=== PATIENT | female | born 1925 | race Caucasian/White ===

== ENCOUNTER 2017-04-12 11:38 | Inpatient (IN) ==
[2017-04-12] MEDS ORDERED: IBUPROFEN 600 MG TABLET PO ONE (12:13)
[2017-04-12] MEDS ORDERED: LACTATED RINGERS 1,000 ML IV ONE (12:13)
[2017-04-12] MEDS ORDERED: ACETAMINOPHEN 325 MG TABLET PO ONE (12:13)
--- NOTE | 2017-04-12 12:13 | Cat Scan Report ---
CLINICAL INFORMATION: Confusion and weakness question stroke COMPARISON: 06/17/2016. TECHNIQUE: 2.5 mm helical slices were obtained in the skull base to vertex. Following reconstruction, axial reformatted images were reviewed at bone and parenchymal windows. The exam was performed using radiation dose optimization techniques including, but not limited to, automated exposure control, adjustment of the mA and/or kV according to patient size and use of iterative reconstruction technique. FINDINGS: The ventricles, sulci, fissures, and cisterns are symmetrically enlarged compatible with moderate atrophy: this is unchanged. No extra-axial fluid collections or masses. Mild chronic ischemic changes in the white matter also stable. No acute cerebral hemorrhage, mass effect, edema or other acute finding. Bone windows show no osseous abnormality. IMPRESSION: Moderate atrophy and chronic ischemic changes deep cerebral white matter - stable. No acute findings. Interpreted and Authenticated by: Dariel Galvan 04/12/17
[2017-04-12] MEDS ORDERED: LABETALOL 5 MG/ML ML IV ONE ×2 (12:31→12:39)
--- NOTE | 2017-04-12 12:33 | Emergency Department Note ---
Weakness HPI - General Chief complaint: Stroke Symptoms Stated complaint: confusion and headache Time Seen by Provider: 04/12/17 11:53 Source: patient Mode of arrival: ambulatory - History of Present Illness HPI Narrative: This 89-year-old female is brought in by private vehicle with a history of EMS being on seen in the. Patient refusing transport by EMS. The daughter was not advised to bring her in after an episode of confusion that started this morning about 9 AM up. Sometime between 9 AM and 10 AM another daughter was on the phone with her noticed that she was confused. There is no history of confusion prior to this, but then we do not have any history how she was this morning up. She lives by herself. There is no history of any nausea, vomiting, she does report a headache which is left-sided, there is no right-sided weakness, she has no focal deficits except that she is very confused. According to the daughter. To me she knows where she is she knows the month. She knows her name , she has a hard time following commands and she is inconsistent in following her commands and simple tasks like arm raising or specific commands. No recent fevers, no chills, no chest pain, no shortness of breath, she does have a pacemaker in place and she is chronically anticoagulated. - Related Data Home Medications Medication Instructions Recorded Confirmed aspirin 81 mg tablet,delayed 81 mg PO QDAY tab 11/30/14 01/17/17 release calcium carbonate 500 mg calcium 1,000 mg PO QDAY tab 11/30/14 01/17/17 (1,250 mg) tablet lysine 500 mg tablet 500 mg PO .3x/week tab 11/30/14 01/17/17 multivitamin capsule 1 cap PO QDAY cap 11/30/14 01/17/17 cartilage 40 mg-collagen II-boron tab PO 09/01/15 01/17/17 5 mg-hyaluronate sod 3.3 mg tablet vit C 50 mg-E 15 unit-zinc cit 4.5 2 tab PO QDAY 09/01/15 01/17/17 mg-lutein 2.5 mg-zeaxan chew tablet Previous Rx's Medication Instructions Recorded magnesium oxide-magnesium amino 1 cap PO QDAY #1 cap 07/28/15 acid chelate 300 mg capsule furosemide 40 mg tablet 80 mg PO QAM 90 Days #180 tab 06/21/16 potassium chloride ER 10 mEq 20 meq PO QAM 90 Days #180 cap 06/21/16 capsule,extended release hydrocodone 7.5 mg-acetaminophen 7.5 mg PO QDAY PRN #28 tab 11/22/16 325 mg tablet warfarin 5 mg tablet See Label Instructions PO QDAY 12/26/16 #100 tab ascorbic acid (vitamin C) 500 mg 500 mg PO BID #1 tab 01/28/17 tablet ferrous sulfate 325 mg (65 mg 325 mg PO BID #1 tab 01/28/17 iron) tablet pantoprazole 40 mg tablet,delayed 40 mg PO BID #180 tab 02/19/17 release Allergies Allergy/AdvReac Type Severity Reaction Status Date / Time No Known Drug Allergies Allergy Verified 04/12/17 11:43 Review of Systems All systems ED: reviewed and negative except as stated. Past Medical History - Past Medical History Source: nursing notes reviewed Medical history: Reports: hypertension, valvular heart disease (ortic valve) Surgical history ED: Reports: angioplasty/stent, heart valve replacement, pacemaker/AICD, other Family history: Reports: non-contributory - Social History smoking status: Never smoker Alcohol use: Reports: None Physical Exam Limitations: no limitations General appearance: alert Head: atraumatic, normocephalic, normal inspection Eye: Present: normal appearance, PERRL, EOMI, visual dubose intact. Absent: conjunctival injection, nystagmus, miosis, mydriasis ENT: normal exam, normal oropharynx, mucous membranes moist, TM's normal bilaterally Neck: Present: normal inspection, full ROM, trachea midline. Absent: tenderness Chest: Present: normal inspection, symmetric chest wall rise Respiratory: Present: normal lung sounds bilaterally. Absent: respiratory distress Cardiovascular: Present: regular rate, tachycardia, normal heart sounds Abdominal: Present: soft, normal bowel sounds. Absent: distention, tenderness, guarding, rebound Extremities: Present: normal inspection, full ROM, normal capillary refill. Absent: tenderness, pedal edema Back: Present: normal inspection. Absent: CVA tenderness (R), CVA tenderness (L ), muscle spasm, vertebral tenderness Neurological: Present: alert, oriented X3, CN II-XII intact, normal gait, other (Confusion as well as word finding ability. Speech is not slurred. She has no other focal deficits.). Absent: motor sensory deficit Skin: Present: warm, dry, intact Course Vital Signs Temperature 97.2 F 04/12/17 11:41 Pulse Rate 93 H 04/12/17 11:41 Respiratory Rate 16 04/12/17 11:41 Blood Pressure 184/105 04/12/17 11:41 Pulse Oximetry (%) 96 04/12/17 11:41 Temperature 97.2 F 04/12/17 11:41 Pulse Rate 89 04/12/17 14:34 Respiratory Rate 14 04/12/17 14:34 Blood Pressure 201/115 04/12/17 14:31 Pulse Oximetry (%) 100 04/12/17 14:34 Weakness - MDM Narrative Medical decision making narrative: Her blood pressure is improving, she had a negative CTA of her neck and had. Neurologic condition is improving, speech is no longer off, she is awake, alert , oriented 3. She states her headache is improving as well. Her labs look unremarkable. I did discuss this with Dr. Hartman we will admit at this point for further stroke workup. Final diagnosis is confusion associated with hypertension, question of hypertensive encephalopathy versus TIA - Lab Data Result diagrams: 04/12/17 12:36 04/12/17 12:36 Lab Results 04/12/17 04/12/17 04/12/17 Range/Units 12:36 12:36 12:36 WBC 9.5 (4.5-11.0) K/mcL RBC 5.27 H (4.00-5.20) M/mcL Hgb 14.2 (12.0-15.0) g/dL Hct 44.0 (36.0-48.0) % MCV 83.4 (80.0-100.0) fL MCH 27.0 (26.0-34.0) pg MCHC 32.4 (31.0-36.0) g/dL RDW 22.9 H (11.5-14.5) % Plt Count 305 (140-440) K/mcL MPV 9.1 (7.4-10.4) fL Gran % 48.4 (38.0-78.0) % Lymph % (Auto) 37.7 (15.5-49.0) % [place] % (Auto) 9.5 (1.0-12.0) % Eos % (Auto) 3.5 (0.0-7.0) % Baso % (Auto) 0.9 (0.0-2.0) % Gran # 4.6 (1.8-8.0) K/mcL Lymph # (Auto) 3.6 (1.5-4.8) K/mcL [place] # (Auto) 0.9 (0.1-0.9) K/mcL Eos # (Auto) 0.3 (0.0-0.7) K/mcL Baso # (Auto) 0.1 (0.0-0.3) K/mcL PT 24.4 H (11.9-14.5) sec INR 2.1 H (0.9-1.1) Sodium 141 (133-145) mmol/L Potassium 3.7 (3.3-5.1) mmol/L Chloride 100 (96-108) mmol/L Carbon Dioxide 27 (22-30) mmol/L Anion Gap 14.0 (8-16) BUN 16 (8-23) mg/dl Creatinine 0.9 (0.6-1.1) mg/dl GFR Calculation 57 Glucose 114 H (70-105) mg/dL Calcium 9.5 (8.6-10.4) mg/dl Total Bilirubin 0.2 (0.0-1.0) mg/dL AST 26 (0-37) U/l ALT 13 (0-40) U/l Alkaline Phosphatase 83 (39-117) U/L Total Protein 8.6 H (5.9-8.4) gm/dL Albumin 4.5 (3.2-5.2) gm/dL Globulin 4.1 H (2.2-3.7) gm/dL Albumin/Globulin Ratio 1.1 (1.0-2.3) Urine Color Urine Appearance Urine pH (5.0-9.0) Ur Specific [place] (1.000-1.035) Urine Protein (NEG) mg/dL Urine Glucose (UA) (NEG) mg/dL Urine Ketones (NEG) mg/dL Urine Occult Blood (<0.03) mg/dL Urine Nitrate (NEG) Urine Bilirubin (NEG) mg/dL Urine Urobilinogen (NEG) mg/dL Ur Leukocyte Esterase (NEG) /uL Urine RBC (0-1) /hpf Urine WBC (0-4) /hpf Ur Squamous Epith Cells (0-4) /hpf Urine Bacteria (0) /hpf Urine Mucus (0) /hpf Ur Culture Indicated? 04/12/17 Range/Units 12:44 WBC (4.5-11.0) K/mcL RBC (4.00-5.20) M/mcL Hgb (12.0-15.0) g/dL Hct (36.0-48.0) % MCV (80.0-100.0) fL MCH (26.0-34.0) pg MCHC (31.0-36.0) g/dL RDW (11.5-14.5) % Plt Count (140-440) K/mcL MPV (7.4-10.4) fL Gran % (38.0-78.0) % Lymph % (Auto) (15.5-49.0) % [place] % (Auto) (1.0-12.0) % Eos % (Auto) (0.0-7.0) % Baso % (Auto) (0.0-2.0) % Gran # (1.8-8.0) K/mcL Lymph # (Auto) (1.5-4.8) K/mcL [place] # (Auto) (0.1-0.9) K/mcL Eos # (Auto) (0.0-0.7) K/mcL Baso # (Auto) (0.0-0.3) K/mcL PT (11.9-14.5) sec INR (0.9-1.1) Sodium (133-145) mmol/L Potassium (3.3-5.1) mmol/L Chloride (96-108) mmol/L Carbon Dioxide (22-30) mmol/L Anion Gap (8-16) BUN (8-23) mg/dl Creatinine (0.6-1.1) mg/dl GFR Calculation Glucose (70-105) mg/dL Calcium (8.6-10.4) mg/dl Total Bilirubin (0.0-1.0) mg/dL AST (0-37) U/l ALT (0-40) U/l Alkaline Phosphatase (39-117) U/L Total Protein (5.9-8.4) gm/dL Albumin (3.2-5.2) gm/dL Globulin (2.2-3.7) gm/dL Albumin/Globulin Ratio (1.0-2.3) Urine Color Yellow Urine Appearance Cloudy Urine pH 7.0 (5.0-9.0) Ur Specific [place] 1.008 (1.000-1.035) Urine Protein Neg (NEG) mg/dL Urine Glucose (UA) Negative (NEG) mg/dL Urine Ketones Neg (NEG) mg/dL Urine Occult Blood Neg (<0.03) mg/dL Urine Nitrate Neg (NEG) Urine Bilirubin Neg (NEG) mg/dL Urine Urobilinogen Neg (NEG) mg/dL Ur Leukocyte Esterase 500 A (NEG) /uL Urine RBC 7 H (0-1) /hpf Urine WBC > 182 H (0-4) /hpf Ur Squamous Epith Cells 0 (0-4) /hpf Urine Bacteria 0 (0) /hpf Urine Mucus Few (0) /hpf Ur Culture Indicated? Yes Disposition Pt seen by [facility] [facility]/PA only: No Clinical Impression: TIA (transient ischemic attack) Disposition: Xfer As Inpt ([facility]) Condition: Fair Referrals: Zoltan Lou MD [Primary Care Provider] -
[2017-04-12 13:13] LABS: Basophils # (Auto) 0.1 K/mcL (0.0-0.3); Basophils % (Auto) 0.9 % (0.0-2.0); Eosinophils # (Auto) 0.3 K/mcL (0.0-0.7); Eosinophils % (Auto) 3.5 % (0.0-7.0); Granulocytes % (Auto) 48.4 % (38.0-78.0); Lymphocytes # (Auto) 3.6 K/mcL (1.5-4.8); Lymphocytes % (Auto) 37.7 % (15.5-49.0); Mean Cell Volume 83.4 fL (80.0-100.0); Mean Corpuscular HGB Conc 32.4 g/dL (31.0-36.0); Monocytes # (Auto) 0.9 K/mcL (0.1-0.9); Monocytes % (Auto) 9.5 % (1.0-12.0); Platelet Count 305 K/mcL (140-440); RBC 5.27 M/mcL (4.00-5.20); Red Cell Distribution Width 22.9 % (11.5-14.5)
[2017-04-12 13:24] LABS: Appearance,Urine CLOUDY; Bacteria,Urine 0 /hpf (0); Bilirubin,Urine NEG (NEG); Color,Urine YELLOW; Glucose,Urine (UA) NEGATIVE (NEG); Leukocyte Esterase,Urine 500 /uL (NEG); Mucus,Urine FEW /hpf (0); Nitrate,Urine NEG (NEG); Protein,Urine NEG (NEG); Specific Gravity,Urine 1.008 (1.000-1.035); Urine Blood NEG mg/dL (<0.03); Urine RBC 7 /hpf (0-1); Urine Squamous Epithelial Cell 0 /hpf (0-4); Urine WBC > 182 /hpf (0-4); Urobilinogen,Urine NEG (NEG)
[2017-04-12 13:33] LABS: ALT/SGPT 13 U/l (0-40); Albumin 4.5 gm/dL (3.2-5.2); Albumin/Globulin Ratio 1.1 (1.0-2.3); Alkaline Phosphatase 83 U/L (39-117); Blood Urea Nitrogen 16 mg/dl (8-23)
[2017-04-12] MEDS ORDERED: ENALAPRILAT 1.25 MG/ML VIAL IV ONE (14:29)
[2017-04-12] MEDS ORDERED: ISOSORBIDE MONONITRATE 30 MG TAB.XL.24H PO ONE (14:29)
[2017-04-12] MEDS ORDERED: ceFAZolin 1 GM VIAL IV ONE (15:05)
--- NOTE | 2017-04-12 16:47 | Internal Med History&Physical ---
Medical - H&P: HPI Patient information: Note initiated : 04/12/17 at 4:33 pm Service Date, if different from initiated Date: [] Patient: Sherita Barragan 89 y/o F admitted on for confusion and headache. Chief Complaint: [] History of present illness: Ms. Barragan is a 89 year old Female with h/o chf, tia, afib, on coumadin, htn not on medications, she has an extensive pmh, which is detailed very well in Dr Alee herr physical exam. The patient this time around presents to the ER with complaints of confusion, headache, dysarthria, x from 9 :30 to 10 am today, as witnessed by the daugther , the patient notes headache, severe temporal in nature, sharp, she has chr blurring of vision, some nausea, but no vomiting. She was dysarthric, as per family, confused and unable to find the right words, She did not have any focal weakness, no facial dropping. She was brought to the ER for further evaluation. In the ER her bp was 184/105, and trended up. Code STroke was activated, CT head is negative CTA heand and neck is not read yet, but ER provider notes no occlusion was reported. The patient given age was not deemed candidate for TPA. Given the patients elevated bp, she was given IV labetaol 10mg, with no good response, she was then given enlapriat 1.25, and imdur 30mg. She was presented to the hospital for admission. By the time of my evaluation, the patient mental status was back to baseline, she was able to tell me her story, which she thinks she remembers not able to speak well, she denies having headaches in the past. her Bp is now back to normal. Daughters present at bedside, who corroborated the story Patient wishes to be DNR/ DNI, she will be admitted to PCU for close neuro checks/ Close bp monitoring, family aware that bp now is normal, which is not what we would want/ expect. All systems: reviewed and no additional remarkable complaints except as stated ( as per hpi rest negative) Medical - H&P: PMH Medical history: Medical History (Last Reviewed 01/17/17 @ 09:56 by Tiffanie Sanderson RN) Infected epithelial inclusion cyst (Acute) UTI (urinary tract infection) (Acute) Expressive aphasia (Acute) Asymmetry of cerebral ventricles (Acute) Anemia (Acute) Breast nodule (Acute) Current use of intermediate anticoagulation (Chronic) A-fib (Acute) Hydrocephalus (Chronic) TIA (transient ischemic attack) (Chronic) Dyspnea (Acute) Abscess of right genital labia (Acute) Encounter for wound re-check (Acute) Encounter for Health Maintenance Examination in Adult (Chronic) Tachycardia (Chronic) Degenerative arthritis (Chronic) Depression (Chronic) Diverticulitis of colon (Chronic 09/19/14) Esophagitis (Chronic) Heart block (Chronic) Hiatal hernia (Chronic) Hypertension (Chronic) Kidney cysts (Chronic) Mitral regurgitation (Chronic) Osteopenia (Chronic) Pacemaker (Chronic 09/29/14) Radiculopathy, lumbosacral or thoracic (Chronic) Spondylolisthesis (Chronic) Cystitis (Chronic) Congestive heart failure (Chronic 04/22/14) Colon polyps (Chronic) Chronic cystitis (Chronic 06/24/14) Back pain (Chronic) Aortic stenosis (Chronic) Aortic regurgitation (Chronic) Anemia, iron deficiency (Chronic) Surgical history: Past Surgical History (Last Reviewed 01/17/17 @ 09:56 by Tiffanie Sanderson RN) History of aortic valve replacement (Chronic) History of colonoscopy (Chronic 09/02/14) History of cataract surgery (Chronic) History of arthroscopic knee surgery (Chronic) History of cystocele (Chronic) History of esophagogastroduodenoscopy (Chronic 10/18/08) History of hysterectomy (Chronic) History of oophorectomy (Chronic) History of pacemaker (Chronic 09/30/11) Pertinent family history: Family History (Last Reviewed 01/17/17 @ 09:56 by Tiffanie Sanderson RN) Unknown Malignant neoplasm of breast Mother Malignant neoplasm of brain Medical - H&P: Meds Home Medications Medication Instructions Recorded Confirmed Type aspirin 81 mg tablet,delayed 81 mg PO QDAY tab 11/30/14 04/12/17 History release calcium carbonate 500 mg calcium 1,000 mg PO QDAY tab 11/30/14 04/12/17 History (1,250 mg) tablet lysine 500 mg tablet 600 mg PO .3x/week tab 11/30/14 04/12/17 History multivitamin capsule 1 cap PO QDAY cap 11/30/14 04/12/17 History cartilage 40 mg-collagen II-boron 1 tab PO DAILY 09/01/15 04/12/17 History 5 mg-hyaluronate sod 3.3 mg tablet vit C 50 mg-E 15 unit-zinc cit 4.5 2 tab PO QDAY 09/01/15 04/12/17 History mg-lutein 2.5 mg-zeaxan chew tablet furosemide 40 mg tablet 80 mg PO QAM 90 Days #180 tab 06/21/16 04/12/17 Rx potassium chloride ER 10 mEq 20 meq PO QAM 90 Days #180 cap 06/21/16 04/12/17 Rx capsule,extended release hydrocodone 7.5 mg-acetaminophen 7.5 mg PO QDAY PRN #28 tab 11/22/16 04/12/17 Rx 325 mg tablet warfarin 5 mg tablet See Label Instructions PO QDAY 12/26/16 04/12/17 Rx #100 tab ascorbic acid (vitamin C) 500 mg 500 mg PO BID #1 tab 01/28/17 04/12/17 Rx tablet ferrous sulfate 325 mg (65 mg 325 mg PO BID #1 tab 01/28/17 04/12/17 Rx iron) tablet pantoprazole 40 mg tablet,delayed 40 mg PO BID #180 tab 02/19/17 04/12/17 Rx release Magnesium Oxide/Mag Aa Chelate 500 mg PO QDAY 04/12/17 04/12/17 History [Magnesium 300 mg Capsule] Allergies Allergy/AdvReac Type Severity Reaction Status Date / Time No Known Drug Allergies Allergy Verified 04/12/17 11:43 Medical - H&P: Exam - Constitutional Vitals: Temp Pulse Resp BP Pulse Ox 97.2 F 84 27 H 128/78 98 04/12/17 11:41 04/12/17 16:04 04/12/17 16:04 04/12/17 16:01 04/12/17 16:04 Medical - H&P: Reslt - Labs CBC & Chem 7: 04/12/17 12:36 04/12/17 12:36 Labs: Short CBC 04/12/17 Range/Units 12:36 WBC 9.5 (4.5-11.0) K/mcL Hgb 14.2 (12.0-15.0) g/dL Hct 44.0 (36.0-48.0) % Plt Count 305 (140-440) K/mcL BMP 04/12/17 12:36 Sodium 141 Potassium 3.7 Chloride 100 Carbon Dioxide 27 BUN 16 Creatinine 0.9 Glucose 114 H Calcium 9.5 Liver Function 04/12/17 Range/Units 12:36 Total Bilirubin 0.2 (0.0-1.0) mg/dL AST 26 (0-37) U/l ALT 13 (0-40) U/l Alkaline Phosphatase 83 (39-117) U/L Albumin 4.5 (3.2-5.2) gm/dL Urine 04/12/17 Range/Units 12:44 Urine Color Yellow Urine Appearance Cloudy Urine pH 7.0 (5.0-9.0) Ur Specific [place] 1.008 (1.000-1.035) Urine Protein Neg (NEG) mg/dL Urine Glucose (UA) Negative (NEG) mg/dL - EKG Data -: EKG Reviewed by Myself (paced, atrial sensed ventricular. ) Medical - H&P: A/P - Narrative A/P Narrative: A/P Altered Mental status:/ TIA/ PRES Hypertensive Encephalopathy: The patient has dyarthria, and disdidochokinesa bilaterally as per staff, no focal weakness, her headache also confounds the presentation along with nausea. Usually with TIA one would not expect nausea and headache. Therefore its likely that her symptoms are related to PRES/ Hypertensive encephalopathy, the patient is unable to get an MRI due to pacemaker status. CT head is negative. for now will keep bp less than 180/ 110 for nwo, and then resume oral meds gradually. Pts bp is already in the normal rage with one dose of enalapritat and oral imdur, which is not ideal, should the BP go up again, will keep her on nicardipine drip to keep bp rising above 180 systolic, goal would be to reduce bp by 15% over 24 hrs. The patient is on couamding for her AFbi and INR is therapeutic, AFib: rate controlled, inr therapeutic, get echo, CHF: Cardiomegaly on x ray, check echo, resume oral lasix, on exam she does have s4, on auscultatio, but does not have overt edema or crakcles on exam, monitor closely s/p pacemaker status: dual chamber pacemaker in 2011 due to complete heart block Aortic stenosis: s/p TAVR in 2014, HTN: has been only on lasix 80mg at home was on losartan in the past, but had been weaned off due to normal blood pressure, will see if she would benefit from a beta hai in light of her heartr failure, if not will resume losartan again. Abnl UA: she does have increased urinary frequency, but does not hav burning urine, ua mildly abnl, on rocephin for same, await cultures. DVT on coumadin with therapeutic INR DNR code status Check a1c, and lipid Cardiac diet. Social History - Social History household members: alone housing: house marital status: occupational status: retired - Tobacco smoking status: Never smoker - Alcohol alcohol intake frequency: does not drink - Substance use substance use type: does not use
--- NOTE | 2017-04-12 16:51 | XRay Report ---
CLINICAL INFORMATION: Stroke COMPARISON: 07/24/2015 FINDINGS: Massive hiatal hernia is again noted. Moderate cardiomegaly unchanged. TAVR replacement in stable satisfactory position. Dual-chamber pacemaker leads in stable satisfactory position as well. The pulmonary vessels show mild redistribution due to bibasilar airspace disease. No definite evidence of CHF. Moderate patchy infiltrates have developed in both lung bases with small bilateral effusions IMPRESSION: Moderate patchy infiltrates developing in both lung bases. Suspect aspiration. Small effusions noted Massive hiatal hernia Moderate stable cardiomegaly. There is upper lobe pulmonary vascular redistribution due to bibasilar airspace disease, but no definite CHF Interpreted and Authenticated by: Dariel Galvan 04/12/17
[2017-04-12] MEDS ORDERED: MAGNESIUM HYDROXIDE 30 ML ORAL.SUSP PO PRN (16:56)
[2017-04-12] MEDS ORDERED: ACETAMINOPHEN 325 MG TABLET PO PRN (16:56)
[2017-04-12] MEDS ORDERED: ONDANSETRON 4 MG/2 ML VIAL IV PRN (16:56)
[2017-04-12] MEDS ORDERED: NALOXONE HCL 0.4 MG/ML VIAL IV PRN (16:56)
[2017-04-12] MEDS ORDERED: cefTRIAXone 1 GM in DEXTROSE 5% IN WATER 50 ML IV SCH (16:56)
[2017-04-12] MEDS ORDERED: niCARdipine 25 MG in 0.9 % SODIUM CHLORIDE 240 ML IV SCH (16:56)
--- NOTE | 2017-04-12 18:05 | Cat Scan Report ---
CLINICAL INFORMATION: Confusion and headache COMPARISON: None. TECHNIQUE: 80 cc of Isovue-300 were injected intravenously , and using SmartPrep to maximize cerebral arterial opacification, 0.625 mm helical slices were obtained from the skull base through the cerebral vertex. Following reconstruction , sagittal, coronal and axial reformatted images were processed and reviewed at multiple windows and levels. 3D volume rendered and MIP images were acquired at a independent workstation. The exam was performed using radiation dose optimization techniques including, but not limited to, automated exposure control, adjustment of the mA and/or kV according to patient size and use of iterative reconstruction technique. FINDINGS: The intracranial internal carotid, vertebral, basilar, anterior middle and posterior cerebral arteries and their branches are normal in contour and caliber and are well opacified - no pathology identified. Superficial and deep cerebral veins and the venous sinuses are patent IMPRESSION: Normal Interpreted and Authenticated by: Dariel Galvan 04/12/17
--- NOTE | 2017-04-12 18:11 | Cat Scan Report ---
CLINICAL INFORMATION: Confusion and headache evaluate for stenosis COMPARISON: None. TECHNIQUE: 80 cc of Isovue-300 were injected intravenously, and using SmartPrep to maximize arterial opacification, 0.625 mm helical slices were obtained from the thoracic aortic arch through the [place]. Following reconstruction, 1.25 mm sagittal, coronal and axial reformatted images were processed and reviewed at standard and bone algorithm/window. 3-D volume rendered, CPR and MIP images were processed using a [employer] work station.The exam was performed using radiation dose optimization techniques including, but not limited to, automated exposure control, adjustment of the mA and/or kV according to patient size and use of iterative reconstruction technique. FINDINGS: The thoracic aortic arch is normal in contour and caliber. Aortic branching is conventional. The brachiocephalic, both subclavian, vertebral, internal and external carotid arteries are widely patent. There is minimal calcific plaque in both carotid bifurcation. Lung apices show moderate patchy mixed interstitial/alveolar airspace disease of uncertain etiology and chronicity. IMPRESSION: The thoracic aortic arch, brachycephalic, all carotid, both subclavian and vertebral arteries are widely patent. Moderate patchy alveolar airspace disease in the lung apices which may represent aspiration 4.5 cm lipoma in the right esophageal wall region - incompletely imaged. This may effectively narrow the esophageal lumen and may be a second factor (patient has a known large hiatal hernia] predisposing to aspiration . Consider esophagram to evaluate esophageal function and aspiration risk Interpreted and Authenticated by: Dariel Galvan 04/12/17
[2017-04-12] MEDS ORDERED: HYDROCODONE/APAP 7.5/325MG TABLET PO PRN (18:26)
[2017-04-12] MEDS: cefTRIAXone 1 GM VIAL IV SCH (19:16)
[2017-04-12] MEDS: ASCORBIC ACID 500 MG TABLET PO SCH (20:24)
[2017-04-12] MEDS: 0.9 % SODIUM CHLORIDE 10 ML SYRINGE IV SCH (23:12)
[2017-04-13] MEDS ORDERED: PANTOPRAZOLE 40 MG TABLET PO SCH (07:30)
[2017-04-13] MEDS ORDERED: POTASSIUM CHLORIDE 20 MEQ TABLET PO SCH (08:00)
[2017-04-13] MEDS ORDERED: FERROUS SULFATE 325 MG TABLET PO SCH (08:00)
[2017-04-13] MEDS ORDERED: CARVEDILOL 3.125 MG TABLET PO SCH (08:00)
[2017-04-13] MEDS: ASCORBIC ACID 500 MG TABLET PO SCH ×2 (08:38→21:34)
[2017-04-13] MEDS: 0.9 % SODIUM CHLORIDE 10 ML SYRINGE IV SCH ×3 (08:38→21:34)
[2017-04-13] MEDS: cefTRIAXone 1 GM VIAL IV SCH (08:46)
[2017-04-13] MEDS ORDERED: ASPIRIN 81 MG TAB.CHEW PO SCH (09:00)
[2017-04-13] MEDS ORDERED: CALCIUM (OYSTER SHELL) 500 MG TABLET PO SCH (09:00)
[2017-04-13] MEDS ORDERED: [UNRECOGNIZED DRUG - REMARK] PO SCH (09:00)
[2017-04-13] MEDS ORDERED: FUROSEMIDE 40 MG TABLET PO SCH (09:00)
--- NOTE | 2017-04-13 11:21 | Internal Med Progress Note ---
Medical - PN: Subj Patient information: Note initiated : 04/13/17 at 11:10 am Service Date, if different from initiated Date: [] Patient: Sherita Barragan 89 y/o F admitted on 04/12/17 for confusion and headache. Chief Complaint: [] Interval history: Ms. Barragan is a 89 year old Female with h/o chf, tia, afib, on coumadin, htn not on medications, she has an extensive pmh, which is detailed very well in Dr Alee herr physical exam. The patient this time around presents to the ER with complaints of confusion, headache, dysarthria, x from 9 :30 to 10 am today, as witnessed by the daugther , the patient notes headache, severe temporal in nature, sharp, she has chr blurring of vision, some nausea, but no vomiting. She was dysarthric, as per family, confused and unable to find the right words, She did not have any focal weakness, no facial dropping. She was brought to the ER for further evaluation. In the ER her bp was 184/105, and trended up. Code STroke was activated, CT head is negative CTA heand and neck is not read yet, but ER provider notes no occlusion was reported. The patient given age was not deemed candidate for TPA. Given the patients elevated bp, she was given IV labetaol 10mg, with no good response, she was then given enlapriat 1.25, and imdur 30mg. She was presented to the hospital for admission. By the time of my evaluation, the patient mental status was back to baseline, she was able to tell me her story, which she thinks she remembers not able to speak well, she denies having headaches in the past. her Bp is now back to normal. Daughters present at bedside, who corroborated the story Patient wishes to be DNR/ DNI, she will be admitted to PCU for close neuro checks/ Close bp monitoring, family aware that bp now is normal, which is not what we would want/ expect. Apr 13 Patient seen examined, no acute overnight issues, no further headaches, or confusion spells, the patient bp is still in the normal range start on low dose coreg today ,and monitor bp for 1 day if remains stable will be able to be d/c home await pt eval xfer to tele status. 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 Although there is a recommendatino by the radiologist for esophageogram, at this time, I see no clinical value in pursuing this test as she will be high risk of aspiration given her extensive hiatal hernia, I can even see some bowel loops in the retrocardiac region in previuos scans. will place her on abx/ augmentin for aspiration noted on CT. thep atient has no symptoms besides cough at this time. Pertinent ROS: Denies headache, dizziness Denies chest pain, palpitations some dry cough, no shortness of breath Denies abdominal pain, nausea or vomiting. - Constitutional Vitals: Vital Signs Temp Pulse Resp BP Pulse Ox 97.3 F 92 H 16 112/69 95 04/13/17 08:22 04/13/17 10:53 04/13/17 10:09 04/13/17 10:09 04/13/17 10:53 Period Temp Pulse Resp BP Sys/Damian Pulse Ox Last 24 Hr 97.2 F-98.3 F 66-100 12-30 96-263/46-239 88-100 Intake and Output 04/12/17 04/13/17 04/13/17 21:59 05:59 13:59 Intake Total 620 / 620 530 / 530 Output Total 150 / 150 150 / 150 700 / 700 Balance 470 / 470 -150 / -150 -170 / -170 Weight 173 lb 4.8 oz Intake & Output: Intake & Output 04/12/17 04/13/17 04/13/17 21:59 05:59 13:59 Intake Total 620 / 620 530 / 530 Output Total 150 / 150 150 / 150 700 / 700 Balance 470 / 470 -150 / -150 -170 / -170 Weight 173 lb 4.8 oz Intake: IV 500 / 500 Lactated Ringers 1,000 ml @ 500 / 500 Wide Open IV .Q0M ONE Rx#: [id number] Oral 120 / 120 530 / 530 Output: Void Amount 150 / 150 150 / 150 450 / 450 Urine/Stool Mix 250 / 250 Other: Meal Dinner Breakfast Percent of Meal Consumed 10 100% Feeding Ability Independent # Voids 1 1 1 # Bowel Movements 1 1 Exam: Constitutional; Afebrile, cooperative, alert, not in distress. Eyes- No icterus, , No periorbital swelling Ears- Ext ear normal, hearing normal to conversation. Neck- Midline trachea, supple Respiratory system: Air Entry equal on both sides, No crackles or wheezing, no rhonchi. CVS- Rate rhythm regular, S1,S2 heard, no gallop, no rub. Abdomen- Soft nontender abdomen, no organomegaly, no tenderness, no guarding or rigidity, CONSUMER SALES REPRESENTATIVE- AOOx3, moving all extremities, no gross focal deficit noted. Medical - PN: Obj Da - Labs CBC & Chem 7: 04/12/17 12:36 04/12/17 12:36 Labs: Abnormal Lab Results 04/12/17 04/12/17 04/12/17 12:44 12:36 12:36 RBC RDW PT 24.4 H INR 2.1 H Glucose 114 H Total Protein 8.6 H Globulin 4.1 H Ur Leukocyte Esterase 500 A Urine RBC 7 H Urine WBC > 182 H 04/12/17 12:36 RBC 5.27 H RDW 22.9 H PT INR Glucose Total Protein Globulin Ur Leukocyte Esterase Urine RBC Urine WBC Meds: Medications Acetaminophen (Tylenol) 650 mg PO Q4-6HP PRN PRN Reason: PAIN/FEVER > 101 Hydrocodone Bitart/Acetaminophen ([place] 7.5/325mg) 1 tab PO Q4HP PRN PRN Reason: Pain Ascorbic Acid (Vitamin C) 500 mg PO BID [facility] Last Admin: 04/13/17 08:38 Dose: 500 mg Aspirin (Aspirin) 81 mg PO DAILY [facility] Last Admin: 04/13/17 08:37 Dose: 81 mg Calcium Carbonate/Glycine (Oscal) 1,000 mg PO QDAY [facility] Last Admin: 04/13/17 08:38 Dose: 1,000 mg Carvedilol (Coreg) 3.125 mg PO BIDCC [facility] Last Admin: 04/13/17 08:37 Dose: 3.125 mg Ceftriaxone Sodium (Rocephin) 1 gm IV Q24H [facility] Last Admin: 04/13/17 08:46 Dose: 1 gm Ferrous Sulfate (Ferrous Sulfate) 325 mg PO BIDCC [facility] Last Admin: 04/13/17 08:38 Dose: 325 mg Furosemide (Lasix) 80 mg PO QAM [facility] Last Admin: 04/13/17 08:37 Dose: 80 mg Magnesium Hydroxide (Milk Of Magnesia) 30 ml PO DAILYP PRN PRN Reason: Constipation Naloxone HCl (Narcan) 0.1 mg IV Q2MIN PRN PRN Reason: Opiate Reversal Ondansetron HCl (Zofran) 4 mg IV Q4-6HP PRN PRN Reason: Nausea And Vomiting Pantoprazole Sodium (Protonix) 40 mg PO BIDAC [facility] Last Admin: 04/13/17 08:38 Dose: 40 mg Cartilage/Collagen/Bor/Hyalur [Move Free Ultra] Tab 1 dose PO DAILY [facility] Last Admin: 04/13/17 08:39 Dose: Not Given Potassium Chloride (Kdur) 20 meq PO QAMCC [facility] Last Admin: 04/13/17 08:38 Dose: 20 meq Sodium Chloride (Saline Flush) 10 ml IV Q8 [facility] Last Admin: 04/13/17 08:38 Dose: 10 ml Medical - PN: A/P - Time Spent With Patient Total time spent is greater than 50% in coordination of care (as documented) at patient's floor/unit and/or counseling patient: - Narrative A/P Narrative: A/P Altered Mental status:/ TIA/ PRES Hypertensive Encephalopathy: Resolved now, monitor bp closely for another day, started on coreg. No adverse events noted ASpiration pna: started on augmentin, clinically has cough, Pt has severe hiatial hernia, / even intestives can be seen in the Chest cavity on some CT scans. Pt has no difficulty in swallowing at this time. AFib: rate controlled, inr therapeutic, get echo, CHF: Cardiomegaly on x ray, echo shows, normval lvef, severe lvh, mildly reduced lvef, dyskinetic inf lateral wall, severe calcification of post mitral valve. s/p pacemaker status: dual chamber pacemaker in 2011 due to complete heart block Aortic stenosis: s/p TAVR in 2014, HTN: has been only on lasix 80mg at home was on losartan in the past, but had been weaned off due to normal blood pressure, pt will start on coreg 3.125 bid for now. Abnl UA: she does have increased urinary frequency, but does not hav burning urine, ua mildly abnl, on rocephin for same, await cultures. DVT on coumadin with therapeutic INR DNR code status Check a1c, and lipid Cardiac diet. Medical - PN: Qual - Stroke Onset of Symptoms Date: 04/12/17 Onset of Symptoms Time: 09:00 Symptom Onset Unknown: Yes - VTE Deep Vein Thrombosis/Pulmonary Embolism Present on Admission: Yes
[2017-04-13] MEDS ORDERED: NALOXONE HCL 0.4 MG/ML VIAL IV PRN (11:56)
[2017-04-13] MEDS ORDERED: HYDROCODONE/APAP 7.5/325MG TABLET PO PRN (11:56)
[2017-04-13] MEDS ORDERED: MAGNESIUM HYDROXIDE 30 ML ORAL.SUSP PO PRN (11:56)
[2017-04-13] MEDS ORDERED: ACETAMINOPHEN 325 MG TABLET PO PRN (11:56)
[2017-04-13] MEDS ORDERED: ONDANSETRON 4 MG/2 ML VIAL IV PRN (11:56)
[2017-04-13] MEDS ORDERED: WARFARIN 2.5 MG TABLET PO ONE (14:00)
[2017-04-13] MEDS ORDERED: AMOXICILLIN/POTASSIUM CLAV 875 MG TABLET PO SCH (17:30)
[2017-04-13] MEDS: FERROUS SULFATE 325 MG TABLET PO SCH (17:41)
[2017-04-13] MEDS: PANTOPRAZOLE 40 MG TABLET PO SCH (17:41)
[2017-04-13] MEDS: CARVEDILOL 3.125 MG TABLET PO SCH (17:41)
[2017-04-13 19:29] LABS: Basophils # (Auto) 0 K/mcL (0.0-0.3); Basophils % (Auto) 0.4 % (0.0-2.0); Eosinophils # (Auto) 0.2 K/mcL (0.0-0.7); Eosinophils % (Auto) 1.7 % (0.0-7.0); Granulocytes % (Auto) 69.2 % (38.0-78.0); Lymphocytes % (Auto) 19.1 % (15.5-49.0); Mean Cell Volume 83.3 fL (80.0-100.0); Mean Corpuscular HGB Conc 32.4 g/dL (31.0-36.0); Monocytes % (Auto) 9.6 % (1.0-12.0); Platelet Count 299 K/mcL (140-440); RBC 4.83 M/mcL (4.00-5.20); Red Cell Distribution Width 22.8 % (11.5-14.5)
[2017-04-13 19:47] LABS: Blood Urea Nitrogen 16 mg/dl (8-23)
[2017-04-13] MEDS: PIPERACILLIN SODIUM/TAZOBACTAM 3.375 GM in DEXTROSE 5% IN WATER 50 ML IV SCH ×2 (19:48→23:54)
[2017-04-13] MEDS ORDERED: POTASSIUM CHLORIDE 20 MEQ PACKET PO ONE (20:04)
--- NOTE | 2017-04-13 20:34 | XRay Report ---
CLINICAL INFORMATION: Fever COMPARISON: None. FINDINGS: Massive hiatal hernia again noted. Moderate cardiomegaly is unchanged. TAVR replacement in stable satisfactory position. Dual-chamber pacemaker leads in stable satisfactory position. Small/moderate bibasilar infiltrates show improved aeration compared to yesterday. Tiny bilateral pleural effusions are unchanged. Pulmonary vessels are unremarkable IMPRESSION: Small/moderate bibasilar infiltrates have improved from yesterday Massive hiatal hernia - stable Moderate cardiomegaly, but no evidence CHF Interpreted and Authenticated by: Dariel Galvan 04/13/17
[2017-04-14] MEDS: PIPERACILLIN SODIUM/TAZOBACTAM 3.375 GM in DEXTROSE 5% IN WATER 50 ML IV SCH ×3 (05:48→17:52)
[2017-04-14] MEDS: 0.9 % SODIUM CHLORIDE 10 ML SYRINGE IV SCH ×2 (05:49→13:33)
[2017-04-14] MEDS: PANTOPRAZOLE 40 MG TABLET PO SCH ×2 (07:44→16:58)
[2017-04-14] MEDS ORDERED: POTASSIUM CHLORIDE 20 MEQ TABLET PO SCH (08:00)
[2017-04-14 08:03] LABS: Basophils # (Auto) 0.1 K/mcL (0.0-0.3); Basophils % (Auto) 0.6 % (0.0-2.0); Eosinophils # (Auto) 0.2 K/mcL (0.0-0.7); Eosinophils % (Auto) 2.1 % (0.0-7.0); Granulocytes % (Auto) 63.3 % (38.0-78.0); Lymphocytes # (Auto) 2.1 K/mcL (1.5-4.8); Lymphocytes % (Auto) 22.1 % (15.5-49.0); Mean Cell Volume 82.5 fL (80.0-100.0); Mean Corpuscular HGB Conc 32.5 g/dL (31.0-36.0); Mean Corpuscular Hemoglobin 26.8 pg (26.0-34.0); Monocytes # (Auto) 1.1 K/mcL (0.1-0.9); Monocytes % (Auto) 11.9 % (1.0-12.0); Platelet Count 254 K/mcL (140-440); Red Cell Distribution Width 22.3 % (11.5-14.5)
[2017-04-14 08:27] LABS: ALT/SGPT 9 U/l (0-40); Albumin 3.4 gm/dL (3.2-5.2); Alkaline Phosphatase 58 U/L (39-117); Bilirubin,Direct < 0.2 mg/dL (0.0-0.3); Blood Urea Nitrogen 12 mg/dl (8-23); Gamma Glutamyl Transpeptidase 12 U/L (5-36); Magnesium 2.1 mg/dL (1.6-2.5); Uric Acid 3.8 mg/dL (2.5-8.0)
[2017-04-14] MEDS: ASCORBIC ACID 500 MG TABLET PO SCH ×2 (08:37→20:30)
[2017-04-14] MEDS: CARVEDILOL 3.125 MG TABLET PO SCH (08:37)
[2017-04-14] MEDS: FERROUS SULFATE 325 MG TABLET PO SCH ×2 (08:38→17:12)
[2017-04-14] MEDS ORDERED: cefTRIAXone 1 GM VIAL IV SCH (09:00)
[2017-04-14] MEDS ORDERED: ASPIRIN 81 MG TAB.CHEW PO SCH (09:00)
[2017-04-14] MEDS ORDERED: CALCIUM (OYSTER SHELL) 500 MG TABLET PO SCH (09:00)
[2017-04-14] MEDS ORDERED: [UNRECOGNIZED DRUG - REMARK] PO SCH (09:00)
[2017-04-14] MEDS ORDERED: FUROSEMIDE 40 MG TABLET PO SCH (09:00)
[2017-04-14] MEDS ORDERED: CARVEDILOL 3.125 MG TABLET PO ONE (09:15)
--- NOTE | 2017-04-14 10:58 | Internal Med Progress Note ---
Medical - PN: Subj Patient information: Note initiated : 04/14/17 at 10:56 am Service Date, if different from initiated Date: [] Patient: Sherita Barragan 89 y/o F admitted on 04/12/17 for confusion and headache. Chief Complaint: [] Interval history: Ms. Barragan is a 89 year old Female with h/o chf, tia, afib, on coumadin, htn not on medications, she has an extensive pmh, which is detailed very well in Dr Alee herr physical exam. The patient this time around presents to the ER with complaints of confusion, headache, dysarthria, x from 9 :30 to 10 am today, as witnessed by the daugther , the patient notes headache, severe temporal in nature, sharp, she has chr blurring of vision, some nausea, but no vomiting. She was dysarthric, as per family, confused and unable to find the right words, She did not have any focal weakness, no facial dropping. She was brought to the ER for further evaluation. In the ER her bp was 184/105, and trended up. Code STroke was activated, CT head is negative CTA heand and neck is not read yet, but ER provider notes no occlusion was reported. The patient given age was not deemed candidate for TPA. Given the patients elevated bp, she was given IV labetaol 10mg, with no good response, she was then given enlapriat 1.25, and imdur 30mg. She was presented to the hospital for admission. By the time of my evaluation, the patient mental status was back to baseline, she was able to tell me her story, which she thinks she remembers not able to speak well, she denies having headaches in the past. her Bp is now back to normal. Daughters present at bedside, who corroborated the story Patient wishes to be DNR/ DNI, she will be admitted to PCU for close neuro checks/ Close bp monitoring, family aware that bp now is normal, which is not what we would want/ expect. Apr 13 Patient seen examined, no acute overnight issues, no further headaches, or confusion spells, the patient bp is still in the normal range start on low dose coreg today ,and monitor bp for 1 day if remains stable will be able to be d/c home await pt eval xfer to tele status. 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 Although there is a recommendation by the radiologist for esophagogram, at this time, I see no clinical value in pursuing this test as she will be high risk of aspiration given her extensive hiatal hernia, I can even see some bowel loops in the retrocardiac region in previous scans. will place her on abx/ Augmentin for aspiration noted on CT. the patient has no symptoms besides cough at this time. Apr 14 patient seen examined, bp high overnight, she was confused yesterday pm, but this AM is much better Stil has a wet cough, no other complaints XRay shows improving infiltrate had low grade temp overnight Xfer to med surg status today on zosyn for pna/ UTI, clinically improving anticipate d/c in AM, Pertinent ROS: Denies headache, dizziness Denies chest pain, palpitations Prseent cough no shortness of breath Denies abdominal pain, nausea or vomiting. - Constitutional Vitals: Vital Signs Temp Pulse Resp BP Pulse Ox 97.6 F 93 H 18 126/77 95 04/14/17 08:55 04/14/17 08:55 04/14/17 04:11 04/14/17 08:55 04/14/17 08:55 Period Temp Pulse Resp BP Sys/Damian Pulse Ox Last 24 Hr 97.6 F-100.6 F 84-101 16-18 101-166/61-93 92-98 Intake and Output 04/13/17 04/14/17 04/14/17 21:59 05:59 13:59 Intake Total 650 / 650 170 / 170 45 / 45 Output Total 1 / 1 500 / 500 Balance 649 / 649 -330 / -330 45 / 45 Weight 172 lb 5 oz Intake & Output: Intake & Output 04/13/17 04/14/17 04/14/17 21:59 05:59 13:59 Intake Total 650 / 650 170 / 170 45 / 45 Output Total 1 / 1 500 / 500 Balance 649 / 649 -330 / -330 45 / 45 Weight 172 lb 5 oz Intake: IV 50 / 50 50 / 50 45 / 45 Zosyn 3.375 gm In Dextrose 5% 50 / 50 50 / 50 45 / 45 in Water 50 ml @ 100 mls/hr IV Q6H [facility] Rx#:[id number] Oral 600 / 600 120 / 120 Output: Void Amount 500 / 500 # of times incontinent of urine Other: Meal Dinner Percent of Meal Consumed 75% # Bowel Movements 0 Exam: Constitutional; Afebrile, cooperative, alert, not in distress. Eyes- No icterus, , No periorbital swelling Ears- Ext ear normal, hearing normal to conversation. Neck- Midline trachea, supple Respiratory system: Air Entry equal on both sides, No crackles or wheezing, no rhonchi. CVS- Rate rhythm regular, S1,S2 heard, no gallop, no rub. 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 Medical - PN: Obj Da - Labs CBC & Chem 7: 04/14/17 07:15 04/14/17 07:15 Labs: Abnormal Lab Results 04/14/17 04/14/17 04/14/17 07:15 07:15 04:00 RBC RDW 22.3 H [place] # (Auto) 1.1 H PT 25.9 H INR 2.3 H Chloride Glucose Calcium 8.4 L Phosphorus 2.5 L Lactate Dehydrogenase 277 H Total Protein Globulin Ur Leukocyte Esterase Urine RBC Urine WBC 04/13/17 04/13/17 04/13/17 18:26 18:26 12:00 RBC RDW 22.8 H [place] # (Auto) 1.0 H PT 29.3 H INR 2.7 H Chloride 95 L Glucose 139 H Calcium Phosphorus Lactate Dehydrogenase Total Protein Globulin Ur Leukocyte Esterase Urine RBC Urine WBC 04/12/17 04/12/17 04/12/17 12:44 12:36 12:36 RBC RDW [place] # (Auto) PT 24.4 H INR 2.1 H Chloride Glucose 114 H Calcium Phosphorus Lactate Dehydrogenase Total Protein 8.6 H Globulin 4.1 H Ur Leukocyte Esterase 500 A Urine RBC 7 H Urine WBC > 182 H 04/12/17 12:36 RBC 5.27 H RDW 22.9 H [place] # (Auto) PT INR Chloride Glucose Calcium Phosphorus Lactate Dehydrogenase Total Protein Globulin Ur Leukocyte Esterase Urine RBC Urine WBC Meds: Medications Acetaminophen (Tylenol) 650 mg PO Q4-6HP PRN PRN Reason: PAIN/FEVER > 101 Hydrocodone Bitart/Acetaminophen ([place] 7.5/325mg) 1 tab PO Q4HP PRN PRN Reason: Pain Ascorbic Acid (Vitamin C) 500 mg PO BID [facility] Last Admin: 04/14/17 08:37 Dose: 500 mg Aspirin (Aspirin) 81 mg PO DAILY [facility] Last Admin: 04/14/17 08:38 Dose: 81 mg Calcium Carbonate/Glycine (Oscal) 1,000 mg PO QDAY [facility] Last Admin: 04/14/17 08:37 Dose: 1,000 mg Carvedilol (Coreg) 6.25 mg PO BIDCC [facility] Ferrous Sulfate (Ferrous Sulfate) 325 mg PO BIDCC [facility] Last Admin: 04/14/17 08:38 Dose: 325 mg Furosemide (Lasix) 80 mg PO QAM [facility] Last Admin: 04/14/17 08:58 Dose: 80 mg Piperacillin Sod/Tazobactam (Sod 3.375 gm/ Dextrose) 50 mls @ 100 mls/hr IV Q6H [facility] Last Infusion: 04/14/17 06:15 Dose: 0 mls/hr Magnesium Hydroxide (Milk Of Magnesia) 30 ml PO DAILYP PRN PRN Reason: Constipation Naloxone HCl (Narcan) 0.1 mg IV Q2MIN PRN PRN Reason: Opiate Reversal Ondansetron HCl (Zofran) 4 mg IV Q4-6HP PRN PRN Reason: Nausea And Vomiting Pantoprazole Sodium (Protonix) 40 mg PO BIDAC [facility] Last Admin: 04/14/17 07:44 Dose: 40 mg Cartilage/Collagen/Bor/Hyalur [Move Free Ultra] Tab 1 dose PO DAILY [facility] Last Admin: 04/14/17 08:38 Dose: Not Given Potassium Chloride (Kdur) 20 meq PO QAC [facility] Last Admin: 04/14/17 08:37 Dose: 20 meq Sodium Chloride (Saline Flush) 10 ml IV Q8 [facility] Last Admin: 04/14/17 05:49 Dose: 10 ml Warfarin Sodium (Coumadin Per Pharmacy) 1 order PO UD [facility] Warfarin Sodium (Coumadin) 5 mg PO ONCE@1400 ONE Stop: 04/14/17 14:01 Medical - PN: A/P - Time Spent With Patient Total time spent is greater than 50% in coordination of care (as documented) at patient's floor/unit and/or counseling patient: - Narrative A/P Narrative: A/P Altered Mental status:/ TIA/ PRES Hypertensive Encephalopathy: Resolved now, monitor bp closely for another day, started on coreg. dose increased to 6.25 bid. on asa already, start on atorvastatin 40mg qhs. Aspiration pna: high risk given her severe hiatal hernia, plan to AFib: rate controlled, inr therapeutic, echo reviewed, shows lvh mild ystolic dysfunction, ? dyskiensa on apical/ lat wall, Weakness: working wiht PT, strength improving. CHF: Cardiomegaly on x ray, echo shows, normal lvef, severe lvh, mildly reduced lvef, dyskinetic inf lateral wall, severe calcification of post mitral valve. s/p pacemaker status: dual chamber pacemaker in 2011 due to complete heart block Aortic stenosis: s/p TAVR in 2014, HTN: has been only on lasix 80mg at home was on losartan in the past, but had been weaned off due to normal blood pressure,Increase dose of coreg to 6.25 bid. Abnl UA cultures pending, on zosyn for aspiration pna, which should cover possible uti DVT on coumadin with therapeutic INR DNR code status Cardiac diet. Medical - PN: Qual - Stroke Onset of Symptoms Date: 04/12/17 Onset of Symptoms Time: 09:00 Symptom Onset Unknown: Yes - VTE Deep Vein Thrombosis/Pulmonary Embolism Present on Admission: Yes
[2017-04-14] MEDS ORDERED: HYDROCODONE/APAP 7.5/325MG TABLET PO PRN (11:10)
[2017-04-14] MEDS ORDERED: NALOXONE HCL 0.4 MG/ML VIAL IV PRN (11:10)
[2017-04-14] MEDS ORDERED: MAGNESIUM HYDROXIDE 30 ML ORAL.SUSP PO PRN (11:10)
[2017-04-14] MEDS ORDERED: ONDANSETRON 4 MG/2 ML VIAL IV PRN (11:10)
[2017-04-14] MEDS ORDERED: ACETAMINOPHEN 325 MG TABLET PO PRN (11:10)
[2017-04-14] MEDS ORDERED: WARFARIN 5 MG TABLET PO ONE ×2 (14:00)
[2017-04-14] MEDS: CARVEDILOL 6.25 MG TABLET PO SCH (17:12)
[2017-04-14] MEDS ORDERED: CARVEDILOL 6.25 MG TABLET PO SCH (17:30)
[2017-04-14] MEDS ORDERED: ATORVASTATIN 20 MG TABLET PO SCH (21:00)
[2017-04-15] MEDS: PIPERACILLIN SODIUM/TAZOBACTAM 3.375 GM in DEXTROSE 5% IN WATER 50 ML IV SCH ×3 (00:06→12:57)
[2017-04-15] MEDS: 0.9 % SODIUM CHLORIDE 10 ML SYRINGE IV SCH ×2 (00:07→05:52)
[2017-04-15 05:01] LABS: Basophils # (Auto) 0 K/mcL (0.0-0.3); Basophils % (Auto) 0.4 % (0.0-2.0); Eosinophils # (Auto) 0.5 K/mcL (0.0-0.7); Eosinophils % (Auto) 4.9 % (0.0-7.0); Lymphocytes # (Auto) 2.5 K/mcL (1.5-4.8); Lymphocytes % (Auto) 24.7 % (15.5-49.0); Mean Cell Volume 83.8 fL (80.0-100.0); Mean Corpuscular HGB Conc 32.5 g/dL (31.0-36.0); Mean Corpuscular Hemoglobin 27.2 pg (26.0-34.0); Monocytes # (Auto) 1.3 K/mcL (0.1-0.9); Platelet Count 211 K/mcL (140-440); RBC 4.61 M/mcL (4.00-5.20); Red Cell Distribution Width 21.6 % (11.5-14.5)
[2017-04-15 05:15] LABS: ALT/SGPT 9 U/l (0-40); Albumin 3.2 gm/dL (3.2-5.2); Alkaline Phosphatase 54 U/L (39-117); Bilirubin,Direct < 0.2 mg/dL (0.0-0.3); Blood Urea Nitrogen 14 mg/dl (8-23); Gamma Glutamyl Transpeptidase 13 U/L (5-36); Uric Acid 3.3 mg/dL (2.5-8.0)
[2017-04-15] MEDS: PANTOPRAZOLE 40 MG TABLET PO SCH (07:09)
[2017-04-15] MEDS: FERROUS SULFATE 325 MG TABLET PO SCH (07:42)
[2017-04-15] MEDS: CARVEDILOL 6.25 MG TABLET PO SCH (07:42)
[2017-04-15] MEDS ORDERED: POTASSIUM CHLORIDE 20 MEQ TABLET PO SCH (08:00)
[2017-04-15] MEDS ORDERED: CALCIUM (OYSTER SHELL) 500 MG TABLET PO SCH (09:00)
[2017-04-15] MEDS ORDERED: ASPIRIN 81 MG TAB.CHEW PO SCH (09:00)
[2017-04-15] MEDS ORDERED: [UNRECOGNIZED DRUG - REMARK] PO SCH (09:00)
[2017-04-15] MEDS ORDERED: FUROSEMIDE 40 MG TABLET PO SCH (09:00)
[2017-04-15] MEDS: ASCORBIC ACID 500 MG TABLET PO SCH (09:01)
--- NOTE | 2017-04-15 10:01 | Discharge Summary ---
Medical - DS: Prov Patient information: Note initiated : 04/15/17 at 9:57 am Service Date, if different from initiated Date: [] Patient: Sherita Barragan 89 y/o F admitted on 04/12/17 for confusion and headache. Chief Complaint: [] Date of admission: 04/12/17 16:45 Discharge date: 04/15/17 Primary care physician: Zoltan Lou Admitting clinician: Marian Robledo Consults: 04/12/17 15:19 Consult to Physician [CONS] Stat Comment: Consulting Provider: Marian Robledo Reason For Exam: Physician to Consult Discharging clinician: Marian Robledo Medical - DS: Meds - Discharge Medications Prescriptions: Amoxicillin/Potassium Clav [Augmentin] 875 mg PO Q12H #10 tab Carvedilol [Coreg] 6.25 mg PO BIDCC #60 tab Active and Home Medications: Home Medications aspirin 81 mg tablet,delayed release 81 mg PO QDAY tab 11/30/14 [History Confirmed 04/12/17 Last Taken Unknown] calcium carbonate 500 mg calcium (1,250 mg) tablet 1,000 mg PO QDAY tab [History Confirmed 04/12/17 Last Taken Unknown] lysine 500 mg tablet 600 mg PO .3x/week tab 11/30/14 [History Confirmed Last Taken Unknown] multivitamin capsule 1 cap PO QDAY cap 11/30/14 [History Confirmed 04/12/17 Last Taken Unknown] cartilage 40 mg-collagen II-boron 5 mg-hyaluronate sod 3.3 mg tablet 1 tab PO DAILY 09/01/15 [History Confirmed 04/12/17 Last Taken Unknown] vit C 50 mg-E 15 unit-zinc cit 4.5 mg-lutein 2.5 mg-zeaxan chew tablet 2 tab PO QDAY 09/01/15 [History Confirmed 04/12/17 Last Taken Unknown] furosemide 40 mg tablet 80 mg PO QAM 90 Days #180 tab 06/21/16 [Rx Confirmed Last Taken Unknown] potassium chloride ER 10 mEq capsule,extended release 20 meq PO QAM 90 Days # 180 cap 06/21/16 [Rx Confirmed 04/12/17 Last Taken Unknown] hydrocodone 7.5 mg-acetaminophen 325 mg tablet 7.5 mg PO QDAY PRN #28 tab [Rx Confirmed 04/12/17 Last Taken Unknown] warfarin 5 mg tablet See Label Instructions PO QDAY #100 tab 12/26/16 [Rx Confirmed 04/12/17 Last Taken Unknown] ascorbic acid (vitamin C) 500 mg tablet 500 mg PO BID #1 tab 01/28/17 [Rx Confirmed 04/12/17 Last Taken Unknown] ferrous sulfate 325 mg (65 mg iron) tablet 325 mg PO BID #1 tab 01/28/17 [Rx Confirmed 04/12/17 Last Taken Unknown] pantoprazole 40 mg tablet,delayed release 40 mg PO BID #180 tab 02/19/17 [Rx Confirmed 04/12/17 Last Taken Unknown] Magnesium Oxide/Mag Aa Chelate [Magnesium 300 mg Capsule] 500 mg PO QDAY [History Confirmed 04/12/17 Last Taken Unknown] Medical - DS: Hosp Hospital course: Ms. Barragan is a 89 year old Female with h/o chf, tia, afib, on coumadin, htn not on medications (as bp had normalized) The patient presented to the ER with complaints of confusion, headache, dysarthria, x from 9 :30 to 10 am, as witnessed by the daughter, the patient notes headache, severe temporal/ frontal she has chr blurring of vision, some nausea, but no vomiting. She was dysarthric, as per family, confused and unable to find the right words, She did not have any focal weakness, no facial dropping. She was brought to the ER for further evaluation. In the ER her bp was 184/105, and trended up. Code Stroke was activated, CT head was negative, CTA heand and neck also negative. The patient given age was not deemed candidate for TPA. Given the patients elevated bp, she was given IV labetalol 10mg, with no good response, she was then given enlapriat 1.25, and imdur 30mg. She was presented to the hospital for admission. By the time of my evaluation, the patient mental status was back to baseline, she was able to tell me her story, which she thinks she remembers not able to speak well, she denies having headaches in the past. her Bp is now back to normal after interventions in the ER. Altered Mental status: Etiology a bit unclear, could be TIA given her history for same in the past vs Hypertensive Encephalopathy as she did have some nausea and headaches which is usually not associated with TIA. This has resolved now. Her LDL is normal however given her elevated bp, and her risk for CVA I have started her on bp medications, as well as a moderate dose of statin. Atorvastatin 40mg qhs. Aspiration pna: Noted on CT and Chest x ray, clinically stable,Initially treated with zosyn, now d/c on Augmentin for 5 additional days. AFib: rate controlled, inr therapeutic, echo reviewed, She has a rebar bender with whom she follows. Coumadin is managed by [facility]. Weakness: working wiht PT, strength improving. CHF: Cardiomegaly on x ray, echo shows, normal lvef, severe lvh, mildly reduced lvef, dyskinetic inf lateral wall, severe calcification of post mitral valve. Started on coreg for bp as well as heart failuire, she will benefit from JAIME/ ARB in future is she can tolerate same, will leave this to the discretion of her [employer]/ PCP. HTN: has been only on lasix 80mg at home was on losartan in the past, but had been weaned off due to normal blood pressure,She will be discharged on coreg 6.25 bid which she seems to be tolerating well. The patient was evaluated by PT during the hospital stay, and will need ongoing PT, which will be set up. Discharge diagnosis: AMS, aspiration pneumonia, TIA vs Hypertensive encephalopathy - Time Spent with Patient Total time spent providing and/or coordinating discharge services: Less than 30 minutes Medical - DS: Exam - Constitutional Vitals: Vital Signs Temp Pulse Resp BP Pulse Ox 04/15/17 07:47 98.2 F 16 127/74 94 04/15/17 03:52 98.5 F 84 17 141/72 95 04/15/17 00:17 97.7 F 84 17 141/72 93 04/15/17 00:00 98.8 F 85 17 147/80 94 04/14/17 20:41 98.8 F 87 18 135/67 95 04/14/17 16:06 98.4 F 78 16 140/71 95 04/14/17 12:29 118/64 04/14/17 12:25 98.9 F 04/14/17 12:00 98.9 F 72 16 118/64 97 Intake and Output 04/14/17 04/15/17 04/15/17 21:59 05:59 13:59 Intake Total 770 / 770 50 / 50 290 / 290 Output Total 2 / 2 Balance 768 / 768 49 / 49 289 / 289 Intake: IV 50 / 50 50 / 50 50 / 50 Zosyn 3.375 gm In Dextrose 5% 50 / 50 50 / 50 50 / 50 in Water 50 ml @ 100 mls/hr IV Q6H SHUKRI Rx#:[id number] Oral 720 / 720 240 / 240 Output: Void Amount # of times incontinent of urine Other: Meal Dinner Breakfast Percent of Meal Consumed 50% 100% Feeding Ability Assist with Tray Set Up Assist with Tray Set Up # Voids 3 1 # Bowel Movements 1 Weight 173 lb Additional comments: Constitutional; Afebrile, cooperative, alert, not in distress. Eyes- No icterus, , No periorbital swelling Ears- Ext ear normal, hearing normal to conversation. Neck- Midline trachea, supple Respiratory system: Air Entry equal on both sides, No crackles or wheezing, no rhonchi. CVS- Rate normal, irregular rhythm, no gallop, no s3, Abdomen- Soft nontender abdomen, no organomegaly, no tenderness, no guarding or rigidity, [employer]- AOOx3, moving all extremities, no gross focal deficit noted. Medical - DS: Data Procedures and tests throughout hospitalization: Head CT IMPRESSION: Moderate atrophy and chronic ischemic changes deep cerebral white matter - stable. No acute findings. Chest X ray IMPRESSION: Moderate patchy infiltrates developing in both lung bases. Suspect aspiration. Small effusions noted Massive hiatal hernia Moderate stable cardiomegaly. There is upper lobe pulmonary vascular redistribution due to bibasilar airspace disease, but no definite CHF Head CT IMPRESSION: Normal Neck CT IMPRESSION: The thoracic aortic arch, brachycephalic, all carotid, both subclavian and vertebral arteries are widely patent. Moderate patchy alveolar airspace disease in the lung apices which may represent aspiration 4.5 cm lipoma in the right esophageal wall region - incompletely imaged. This may effectively narrow the esophageal lumen and may be a second factor (patient has a known large hiatal hernia] predisposing to aspiration . Consider esophagram to evaluate esophageal function and aspiration risk Labs on day of discharge: Labs from last 24 hours 04/15/17 04/15/17 04/15/17 03:45 03:45 03:45 WBC 10.3 RBC 4.61 Hgb 12.6 Hct 38.6 MCV 83.8 MCH 27.2 MCHC 32.5 RDW 21.6 H Plt Count 211 MPV 9.3 Gran % 57.0 Lymph % (Auto) 24.7 [place] % (Auto) 13.0 H Eos % (Auto) 4.9 Baso % (Auto) 0.4 Gran # 5.9 Lymph # (Auto) 2.5 [place] # (Auto) 1.3 H Eos # (Auto) 0.5 Baso # (Auto) 0 PT 24.1 H INR 2.1 H Sodium 139 Potassium 3.9 Chloride 103 Carbon Dioxide 23 Anion Gap 13.0 BUN 14 Creatinine 0.8 GFR Calculation 65 Glucose 94 Uric Acid 3.3 Calcium 8.6 Phosphorus 2.7 Magnesium 2.0 Total Bilirubin 0.3 Direct Bilirubin < 0.2 GGT 13 AST 23 ALT 9 Alkaline Phosphatase 54 Lactate Dehydrogenase 311 H Total Protein 6.5 Albumin 3.2 Globulin 3.3 Albumin/Globulin Ratio 1.0 Triglycerides 83 Preliminary micro results at discharge 04/13/17 18:26 Blood Culture - Preliminary Blood 04/13/17 18:37 Blood Culture - Preliminary Blood Medical - DS: A/P - Patient/Caregiver Discharge Instructions Activity: as per physical therapy, increase activity as tolerated Diet: Cardiac Additional Instructions: You presented to the hospital with Altered mentation, possible TIA vs High blood pressure related Your blood pressure was high on presentation, and you are being started on a new bp medication, Carvedilol 6.25 bid, take this medication twice daily. Although your cholesterol level is normal, you are at high risk of CVA and will benefit from a statin medicatino to lower your risk of future strokes/ cardiac events. You have been prescribed atorvastatin 40mg once daily at bedtime. Please follow up with your regular doctor and have your liver function checked in 3 -6 weeks to ensure that you are tolerating the medication well You also had pneumonia on X ray, likely aspirational, You have a large hiatal hernia which increases your risk of aspiration pneumonia. Please take antibiotics for 5 more days. No other changes have been made in your medication regime. Please follow up with your rebar bender in 2-4 weeks Please follow up with your PCP in 7 days Please follow up with your INR check in 3 days. Go to the ER if worsening symptoms, chest pain, new confusion or any other concerning symptom. - Follow up Plan Follow up with: Zoltan Lou MD [Primary Care Provider] - Allan Mary MD [Physician] - Disposition: Home Health Service Prognosis: Fair Rehab Potential: Fair I certify that the patient requires SNF services: No Overall status at discharge: patient is progressing back to baseline Medical - DS: Qual - VTE Deep Vein Thrombosis/Pulmonary Embolism Present on Admission: Yes
[2017-04-15] MEDS ORDERED: WARFARIN 7.5 MG TABLET PO ONE (14:00)
== END 2017-04-15 13:57 | disposition home health service (06) | DRG 77 ==
LOC: ED 11:38 → ICU 11:38 → OBSVTOIN 16:45 → ICU 16:53
PROVIDERS: ADMIT Internal Medicine; ATTEND Internal Medicine